=== PATIENT | male | born 1950 | race Caucasian/White ===

== ENCOUNTER 2022-06-27 12:23 | Emergency (ER) | payer MEDICAID ==
[~2022-06-27] VITALS: Ht 177.8 cm; Wt 86.2 kg
[~2022-06-27 12:23] MED LIST: AMLO5TAB4 GT; ASCO500T20 GT; FER300L GT; GLUC1VIA4 IM; HYDR-4039 GT; LABE100T8 GT; LEVE500V6 GT; LIP20 GT; LISI20TA30 GT; MULT-1117 GT; NUT.237L30 GT
[2022-06-27 12:30] VITALS: BP_SYST 148
--- NOTE | 2022-06-27 12:35 | NUR ---
Triaged pt and kept on ambulance gurney until bed becomes available.
--- NOTE | 2022-06-27 12:45 | NUR ---
18F G TUBE REPLACED BY DR PERKINS. PT TOLERATED IT WELL. SPLIT DRESSING APPLIED.
[2022-06-27] MEDS ORDERED: GASTROGRAFIN 120 ML ONE (13:19)
[2022-06-27] MEDS ORDERED: DIATR MEGLU/DIATRIZ SOD 30 ML SOLUTION PO ONE (13:19)
--- NOTE | 2022-06-27 15:08 | NUR ---
ETA 1800 WITH [facility] PER SEAN JOB SITE SUPERVISOR.
--- NOTE | 2022-06-27 15:09 | NUR ---
BOXER OPERATOR ACSW Calista received a call for Social Service support from ED [facility] to obtain transport for patient back to [facility]. ACSW contacted [facility] ! . Transport pickup scheduled for 6pm. Addendum: 06/27/22 at 1614 by Calista Banks MSW ACSW was informed patient was transported via [facility]. [facility]W contacted [facility] to cancel was informed it had already been done.
--- NOTE | 2022-06-27 15:40 | NUR ---
PT DISCHARGED VIA [facility]. PT VSS. NAD NOTED. DISCHARGE PAPERWORK PROVIDED TO [facility]BULANCE [facility]. NO IV ACCESS. END OF CARE.
[2022-06-27 15:44] VITALS: BP_SYST 134
== END 2022-06-27 15:40 | disposition home or self-care (01) ==
LOC: SED 12:23
DX: K94.23 Gastrostomy malfunction (principal); Z79.899 Other long term (current) drug therapy
CPT/HCPCS: 99284; 43762; 74240; Q9964; Q9963

== ENCOUNTER 2023-08-08 11:38 | Inpatient (IN) | payer MEDICAID ==
[~2023-08-08] VITALS: Ht 170.2 cm; Wt 73.9 kg
[2023-08-08 11:56] VITALS: BP_SYST 179; PULSE 82; RESP 18; TEMP 97.8; O2SAT 98
[2023-08-08 13:21] LABS: BASOPHILS % (AUTO) 0.3 % (0.0-2.0); EOSINOPHILS # (AUTO) 0.2 K/uL (0.0-0.4); EOSINOPHILS % (AUTO) 2.3 % (0.0-4.0); HEMATOCRIT 47.8 % (36-54); HEMOGLOBIN 15.5 g/dL (14.0-18.0); MEAN CORPUSCULAR HEMOGLOBIN 29 pg (27-31); MEAN CORPUSCULAR HGB CONC 32 % (32-36); MEAN CORPUSCULAR VOLUME 90 fL (79.0-98.0); MONOCYTES # (AUTO) 0.8 K/uL (0.0-1.0); MONOCYTES % (AUTO) 8.5 % (1.7-9.3); NEUTROPHILS # (AUTO) 7.7 K/uL (1.8-7.7); NEUTROPHILS % (AUTO) 78.9 % (40.0-70.0); PLATELET COUNT (AUTO) 130 K/uL (130-430); RED BLOOD CELL COUNT(AUTO) 5.33 MIL/uL (4.2-6.2); RED CELL DISTRIBUTION WIDTH 14.5 % (9.0-15.0); WHITE BLOOD COUNT (AUTO) 9.7 K/uL (4.8-10.8)
[2023-08-08 13:39] LABS: ANION GAP 10 (5-15); CALCIUM 9.3 mg/dL (8.4-11.0); CARBON DIOXIDE 27 mmol/L (23-29); CHLORIDE 102 mmol/L (98-107); CREATININE 0.73 mg/dL (0.55-1.30); GLUCOSE 165 mg/dL (74-106); INR 1.1 (0.80-1.20); POTASSIUM 3.4 mmol/L (3.5-5.1); PROTHROMBIN TIME 11.2 SECS (9.5-12.5); SODIUM SERUM 139 mmol/L (136-145); UREA NITROGEN, BLOOD 13 mg/dL (8-21)
[2023-08-08 13:43] LABS: ALANINE AMINOTRANSFERASE 25 U/L (12-78); ALBUMIN 3.4 g/dL (3.4-4.8); ASPARTATE AMINOTRANSFERASE 24 U/L (10-37); TOTAL BILIRUBIN 1.7 mg/dL (0.0-1.0)
[2023-08-08] MEDS ORDERED: KCL 20 mEq in D5/0.45NS 1000mL 1,000 ML IV ONE (14:30)
[2023-08-08 18:27] VITALS: BP_SYST 160; PULSE 99; RESP 20; TEMP 98.9; O2SAT 97
[2023-08-08] MEDS ORDERED: ACETAMINOPHEN 650 MG SUPP.RECT RC PRN (19:00)
[2023-08-08] MEDS ORDERED: LORazepam 2 MG/ML VIAL IVP PRN (19:00)
[2023-08-08] MEDS ORDERED: hydrALAZINE HCL 20 MG/ML VIAL IVP PRN (19:15)
[2023-08-08 20:00] VITALS: BP_SYST 178; PULSE 79; RESP 18; TEMP 98.7; O2SAT 99
[2023-08-08] MEDS: hydrALAZINE HCL 20 MG/ML VIAL IVP PRN (20:51)
[2023-08-08] MEDS: PANTOPRAZOLE SODIUM 40 MG/VIAL (PROTONIX) IVP SCH (21:29)
[2023-08-08] MEDS: ENOXAPARIN SODIUM 40 MG/0.4 ML SYRINGE SUBCUT SCH (21:30)
[2023-08-08 21:37] VITALS: O2SAT 97
[2023-08-08] MEDS: levETIRAcetam 500 MG in NS 100 ML IV SCH (22:27)
[2023-08-08 22:54] VITALS: BP_SYST 178; PULSE 79; RESP 18; TEMP 98.7; O2SAT 99
[2023-08-08 23:35] VITALS: BP_SYST 178; PULSE 79; RESP 18; TEMP 98.7
[2023-08-09 00:13] VITALS: BP_SYST 147; PULSE 96; RESP 18; TEMP 97.5; O2SAT 95
[2023-08-09 05:37] LABS: BASOPHILS % (AUTO) 0.3 % (0.0-2.0); EOSINOPHILS # (AUTO) 0.3 K/uL (0.0-0.4); EOSINOPHILS % (AUTO) 4.2 % (0.0-4.0); HEMATOCRIT 48.8 % (36-54); HEMOGLOBIN 15.7 g/dL (14.0-18.0); LYMPHOCYTES # (AUTO) 0.8 K/uL (1.0-5.5); MEAN CORPUSCULAR HEMOGLOBIN 29 pg (27-31); MEAN CORPUSCULAR HGB CONC 32 % (32-36); MEAN CORPUSCULAR VOLUME 90 fL (79.0-98.0); MONOCYTES # (AUTO) 0.7 K/uL (0.0-1.0); MONOCYTES % (AUTO) 10.1 % (1.7-9.3); NEUTROPHILS # (AUTO) 4.7 K/uL (1.8-7.7); NEUTROPHILS % (AUTO) 73.4 % (40.0-70.0); PLATELET COUNT (AUTO) 126 K/uL (130-430); RED BLOOD CELL COUNT(AUTO) 5.41 MIL/uL (4.2-6.2); RED CELL DISTRIBUTION WIDTH 14.4 % (9.0-15.0); WHITE BLOOD COUNT (AUTO) 6.5 K/uL (4.8-10.8)
[2023-08-09 05:50] LABS: ANION GAP 10 (5-15); CALCIUM 8.8 mg/dL (8.4-11.0); CARBON DIOXIDE 28 mmol/L (23-29); CHLORIDE 105 mmol/L (98-107); CREATININE 0.56 mg/dL (0.55-1.30); GLUCOSE 168 mg/dL (74-106); POTASSIUM 3.2 mmol/L (3.5-5.1); SODIUM SERUM 143 mmol/L (136-145); UREA NITROGEN, BLOOD 10 mg/dL (8-21)
[2023-08-09 08:00] VITALS: BP_SYST 154; PULSE 90; RESP 18; TEMP 97.9; O2SAT 96
[2023-08-09] MEDS: PANTOPRAZOLE SODIUM 40 MG/VIAL (PROTONIX) IVP SCH ×2 (10:37→20:45)
[2023-08-09 12:28] VITALS: BP_SYST 145; PULSE 92; RESP 19; TEMP 97.6; O2SAT 97
[2023-08-09] MEDS ORDERED: ENALAPRILAT DIHYDRATE 1.25 MG/ML VIAL IVP PRN (12:30)
[2023-08-09] MEDS ORDERED: cloNIDine HCL 0.2 MG/24 HR PATCH.TDWK TD ONE (12:45)
[2023-08-09] MEDS: KCL 30mEq in D5/0.45NS 1000 mL 1,000 ML IV SCH (14:05)
[2023-08-09 15:38] VITALS: BP_SYST 149; PULSE 91; RESP 18; TEMP 97.8; O2SAT 96
[2023-08-09 16:00] VITALS: BP_SYST 172; PULSE 87; RESP 20; TEMP 98.4; O2SAT 94
[2023-08-09] MEDS: hydrALAZINE HCL 20 MG/ML VIAL IVP PRN (18:04)
[2023-08-09 20:00] VITALS: BP_SYST 152; PULSE 89; RESP 18; TEMP 97.9; O2SAT 96; O2SAT 97
[2023-08-09] MEDS: levETIRAcetam 500 MG in NS 100 ML IV SCH (20:44)
[2023-08-09] MEDS: ENOXAPARIN SODIUM 40 MG/0.4 ML SYRINGE SUBCUT SCH (20:45)
[2023-08-10 00:52] VITALS: BP_SYST 161; PULSE 98; RESP 21; TEMP 97.1; O2SAT 97
[2023-08-10 06:06] LABS: BASOPHILS % (AUTO) 0.4 % (0.0-2.0); EOSINOPHILS # (AUTO) 0.3 K/uL (0.0-0.4); EOSINOPHILS % (AUTO) 6.4 % (0.0-4.0); HEMATOCRIT 47.8 % (36-54); HEMOGLOBIN 15.5 g/dL (14.0-18.0); MEAN CORPUSCULAR HEMOGLOBIN 29 pg (27-31); MEAN CORPUSCULAR HGB CONC 32 % (32-36); MEAN CORPUSCULAR VOLUME 90 fL (79.0-98.0); MONOCYTES # (AUTO) 0.6 K/uL (0.0-1.0); MONOCYTES % (AUTO) 11.6 % (1.7-9.3); NEUTROPHILS # (AUTO) 3.2 K/uL (1.8-7.7); NEUTROPHILS % (AUTO) 62.6 % (40.0-70.0); PLATELET COUNT (AUTO) 118 K/uL (130-430); RED CELL DISTRIBUTION WIDTH 14.4 % (9.0-15.0); WHITE BLOOD COUNT (AUTO) 5.1 K/uL (4.8-10.8)
[2023-08-10 06:59] LABS: ANION GAP 9 (5-15); CARBON DIOXIDE 25 mmol/L (23-29); CHLORIDE 105 mmol/L (98-107); GLUCOSE 155 mg/dL (74-106); POTASSIUM 3.2 mmol/L (3.5-5.1); SODIUM SERUM 139 mmol/L (136-145)
[2023-08-10 07:00] LABS: ALANINE AMINOTRANSFERASE 32 U/L (12-78); ALBUMIN 3.1 g/dL (3.4-4.8); ASPARTATE AMINOTRANSFERASE 48 U/L (10-37); CALCIUM 8.6 mg/dL (8.4-11.0); CREATININE 0.56 mg/dL (0.55-1.30); TOTAL BILIRUBIN 1.9 mg/dL (0.0-1.0); TOTAL PROTEIN, SERUM 6.3 g/dL (6.4-8.3); UREA NITROGEN, BLOOD 9 mg/dL (8-21)
[2023-08-10 08:00] VITALS: BP_SYST 148; PULSE 82; RESP 20; TEMP 98.8; O2SAT 96
[2023-08-10] MEDS: PANTOPRAZOLE SODIUM 40 MG/VIAL (PROTONIX) IVP SCH ×2 (09:23→21:12)
[2023-08-10 12:00] VITALS: BP_SYST 149; PULSE 86; RESP 21; TEMP 98.2; O2SAT 98
[2023-08-10] MEDS: KCL 30mEq in D5/0.45NS 1000 mL 1,000 ML IV SCH ×2 (15:10→21:17)
[2023-08-10] MEDS ORDERED: POTASSIUM CHLORIDE 20 MEQ in NS 250 ML IV ONE (16:00)
[2023-08-10 16:12] VITALS: BP_SYST 147; PULSE 80; RESP 20; TEMP 98.7; O2SAT 96
[2023-08-10 20:00] VITALS: BP_SYST 156; BP_SYST 167; PULSE 87; RESP 18; TEMP 99; O2SAT 99
[2023-08-10] MEDS: ENOXAPARIN SODIUM 40 MG/0.4 ML SYRINGE SUBCUT SCH (21:00)
[2023-08-10] MEDS: levETIRAcetam 500 MG in NS 100 ML IV SCH ×2 (21:13→21:36)
[2023-08-11] VITALS (7 sets, daily range): BP systolic 120–157; PULSE 70–97; RESP 18–19; TEMP 98–98.6; O2SAT 95–98
[2023-08-11] MEDS: hydrALAZINE HCL 20 MG/ML VIAL IVP PRN (00:56)
[2023-08-11 06:42] LABS: BASOPHILS % (AUTO) 0.5 % (0.0-2.0); EOSINOPHILS # (AUTO) 0.4 K/uL (0.0-0.4); EOSINOPHILS % (AUTO) 8.7 % (0.0-4.0); HEMATOCRIT 48.4 % (36-54); HEMOGLOBIN 15.6 g/dL (14.0-18.0); LYMPHOCYTES % (AUTO) 20.9 % (20.5-51.5); MEAN CORPUSCULAR HEMOGLOBIN 29 pg (27-31); MEAN CORPUSCULAR HGB CONC 32 % (32-36); MEAN CORPUSCULAR VOLUME 90 fL (79.0-98.0); MONOCYTES # (AUTO) 0.5 K/uL (0.0-1.0); MONOCYTES % (AUTO) 11.6 % (1.7-9.3); NEUTROPHILS # (AUTO) 2.7 K/uL (1.8-7.7); NEUTROPHILS % (AUTO) 58.3 % (40.0-70.0); PLATELET COUNT (AUTO) 120 K/uL (130-430); RED BLOOD CELL COUNT(AUTO) 5.38 MIL/uL (4.2-6.2); RED CELL DISTRIBUTION WIDTH 14.2 % (9.0-15.0); WHITE BLOOD COUNT (AUTO) 4.7 K/uL (4.8-10.8)
[2023-08-11 07:00] LABS: INR 1.1 (0.80-1.20); PROTHROMBIN TIME 11.4 SECS (9.5-12.5)
[2023-08-11] MEDS ORDERED: SIMETHICONE 40 MG/0.6 ML ML ONE (07:09)
[2023-08-11 07:13] LABS: ALANINE AMINOTRANSFERASE 38 U/L (12-78); ANION GAP 8 (5-15); ASPARTATE AMINOTRANSFERASE 42 U/L (10-37); CALCIUM 8.6 mg/dL (8.4-11.0); CARBON DIOXIDE 25 mmol/L (23-29); CHLORIDE 107 mmol/L (98-107); CREATININE 0.49 mg/dL (0.55-1.30); GLUCOSE 152 mg/dL (74-106); POTASSIUM 3.4 mmol/L (3.5-5.1); SODIUM SERUM 140 mmol/L (136-145); TOTAL BILIRUBIN 1.8 mg/dL (0.0-1.0); TOTAL PROTEIN, SERUM 6.5 g/dL (6.4-8.3); UREA NITROGEN, BLOOD 7 mg/dL (8-21)
[2023-08-11] MEDS ORDERED: CEFAZOLIN 1 GM IVPB PREMIX 50 ML IV ONE (07:54)
[2023-08-11] MEDS: MIDAZOLAM HCL 5 MG/5 ML VIAL ONE ×3 (08:55→09:02)
[2023-08-11] MEDS: fentaNYL CITRATE/PF 100 MCG/2 ML AMP ONE ×2 (08:55→09:02)
[2023-08-11] MEDS: PANTOPRAZOLE SODIUM 40 MG/VIAL (PROTONIX) IVP SCH ×2 (10:45→23:13)
[2023-08-11] MEDS: levETIRAcetam 500 MG IV PREMIX 100 ML IV SCH ×2 (10:46→21:00)
[2023-08-11] MEDS: KCL 30mEq in D5/0.45NS 1000 mL 1,000 ML IV SCH (10:49)
[2023-08-11] MEDS: ENOXAPARIN SODIUM 40 MG/0.4 ML SYRINGE SUBCUT SCH (21:31)
[2023-08-12 00:34] VITALS: BP_SYST 157; PULSE 83; RESP 18; TEMP 98.1; O2SAT 98
[2023-08-12 04:30] LABS: BASOPHILS % (AUTO) 0.5 % (0.0-2.0); EOSINOPHILS # (AUTO) 0.4 K/uL (0.0-0.4); HEMATOCRIT 48.2 % (36-54); HEMOGLOBIN 15.5 g/dL (14.0-18.0); LYMPHOCYTES # (AUTO) 1.2 K/uL (1.0-5.5); LYMPHOCYTES % (AUTO) 22.7 % (20.5-51.5); MEAN CORPUSCULAR HEMOGLOBIN 29 pg (27-31); MEAN CORPUSCULAR HGB CONC 32 % (32-36); MEAN CORPUSCULAR VOLUME 91 fL (79.0-98.0); MONOCYTES # (AUTO) 0.6 K/uL (0.0-1.0); MONOCYTES % (AUTO) 10.8 % (1.7-9.3); NEUTROPHILS # (AUTO) 3.2 K/uL (1.8-7.7); PLATELET COUNT (AUTO) 132 K/uL (130-430); RED BLOOD CELL COUNT(AUTO) 5.32 MIL/uL (4.2-6.2); RED CELL DISTRIBUTION WIDTH 14.7 % (9.0-15.0); WHITE BLOOD COUNT (AUTO) 5.5 K/uL (4.8-10.8)
[2023-08-12 04:37] LABS: ANION GAP 10 (5-15); CALCIUM 8.8 mg/dL (8.4-11.0); CARBON DIOXIDE 22 mmol/L (23-29); CHLORIDE 107 mmol/L (98-107); CREATININE 0.66 mg/dL (0.55-1.30); GLUCOSE 154 mg/dL (74-106); POTASSIUM 3.6 mmol/L (3.5-5.1); SODIUM SERUM 139 mmol/L (136-145); UREA NITROGEN, BLOOD 10 mg/dL (8-21)
[2023-08-12] MEDS: KCL 30mEq in D5/0.45NS 1000 mL 1,000 ML IV SCH (06:42)
[2023-08-12 08:00] VITALS: BP_SYST 132; PULSE 64; RESP 15; TEMP 98.2; O2SAT 97
[2023-08-12] MEDS: PANTOPRAZOLE SODIUM 40 MG/VIAL (PROTONIX) IVP SCH (08:38)
[2023-08-12] MEDS: levETIRAcetam 500 MG IV PREMIX 100 ML IV SCH (08:38)
[2023-08-12 11:32] VITALS: BP_SYST 134; PULSE 66; RESP 17; TEMP 98.4; O2SAT 96
[2023-08-12 14:28] VITALS: BP_SYST 96; BP_SYST 98; PULSE 66; RESP 17; TEMP 97.9; TEMP 98.4; O2SAT 68; O2SAT 85
[2023-08-12 16:00] VITALS: BP_SYST 155; PULSE 87; RESP 17; TEMP 97.9; O2SAT 98
== END 2023-08-12 18:04 | DRG 252 ==
LOC: SED 11:38 → SMU 14:17
PROVIDERS: ADMIT Family Medicine; ATTEND Family Medicine
PROC: 0DH68UZ Insertion of Feeding Device into Stomach, Via Natural or Artificial Opening Endoscopic (ICD-10-PCS; principal; 2023-08-11 07:30)
DX: K94.23 Gastrostomy malfunction (principal); E43 Unspecified severe protein-calorie malnutrition; R47.01 Aphasia; F44.4 Conversion disorder with motor symptom or deficit; I10 Essential (primary) hypertension; G40.909 Epilepsy, unspecified, not intractable, without status epilepticus; R13.12 Dysphagia, oropharyngeal phase; Z79.899 Other long term (current) drug therapy; Z86.73 Personal history of transient ischemic attack (TIA), and cerebral infarction without residual deficits; Z68.25 Body mass index [BMI] 25.0-25.9, adult
CPT/HCPCS: 36415; 43246; 71045; 76700-TC; 80048; 80053; 83605; 83735; 85025; 85610-TC; 85730-TC; 87081; 93005; 96360; 99285; C9113; J0360; J0690; J1650; J1953; J2250; J3010; J3480; J7050